=== PATIENT | female | born 1985 | race Hispanic/Latino ===

== ENCOUNTER 2018-04-05 21:48 | Emergency (ER) | payer MEDICAID ==
[2018-04-05] MEDS ORDERED: ACETAMINOPHEN 325 MG TAB ONE (22:45)
== END 2018-04-05 23:08 | disposition home or self-care (01) ==
LOC: EDH 21:48
DX: M79.605 Pain in left leg (principal); M79.602 Pain in left arm; M79.7 Fibromyalgia; M32.9 Systemic lupus erythematosus, unspecified; F41.9 Anxiety disorder, unspecified; F32.9 Major depressive disorder, single episode, unspecified; F14.90 Cocaine use, unspecified, uncomplicated; Z98.51 Tubal ligation status